=== PATIENT | female | born 2000 | race Caucasian/White ===

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

== ENCOUNTER → 2018-07-01 | Outpatient (CLI) | payer BC ==
[2018-07-02 08:33] LABS: Alpha Fetoprotein (M.O.M) 0.91; Gestational Age (days) 3; Human Chorionic Gonadotropin 16.7 IU/mL; Inhibin A (M.O.M.) 0.77; Maternal Age at EDD (Yrs) 20; Smoker No; Unconjugated Estriol (M.O.M.) 1.28
== END | disposition home or self-care (01) ==
LOC: LABWHC1 12:12
PROVIDERS: ATTEND Obstetrics & Gynecology
DX: Z34.02 Encounter for supervision of normal first pregnancy, second trimester (principal)
CPT/HCPCS: 36415; 82105; 82677; 84702; 86336

== ENCOUNTER 2018-10-13 13:22 | Outpatient (CLI) | payer BC ==
[2018-10-13 13:59] VITALS: BP 102/59; PULSE 85; RESP 14; TEMP 97
--- NOTE | 2018-10-13 15:22 | P.MSEPDOC ---
Presenting Problems - Arrival Data Date of Arrival on Unit: 10/13/18 Time of Arrival on Unit: 13:30 Mode of Transport: Ambulatory - Complaint Comment: cramping/small gush of fluid Medical History - Information : 1 Para: 0 Term: 0 : 0 Abortions: Spontaneous or Elective: 0 Number of Living Children: 0 - Gestational Age Gestational Age by [place] (wks/days): 32 Weeks and 2 Days Review of Systems - Review of Systems Constitutional: No problems Breast: No problems ENT: No problems Cardiovascular: No problems Respiratory: No problems Gastrointestinal: No problems Genitourinary: No problems Musculoskeletal: No problems Neurological: No problems Vital Signs - Temperature Temperature: 97.0 F - Pulse Right Brachial Pulse Rate: 85 Pulse Assessment Method: Automatic Cuff - Respirations Respiratory Rate: 14 Oxygen Delivery Method: Room Air - Blood Pressure Right Arm Blood Pressure: 102/59 Blood Pressure Mean: 73 Blood Pressure Source: Automatic Cuff Medical Screen Scoring (Pre) - Cervical Exam Dilation: 0 cm = 0 Membranes: Intact - Uterine Contractions Frequency: N/A Duration: N/A Intensity: N/A - Maternal Vital Signs Maternal Temperature: N/A Maternal Blood Pressure: N/A Signs of Preeclampsia: N/A Maternal Respirations: N/A - Maternal Trauma Maternal Trauma: N/A - Assessment - Baby A Baseline FHR: 140 Heart Rate - NICHD Category: Category I (Normal) = 0 NST: Reactive Position: N/A Station: N/A - Total Score - Baby A Total Score - Baby A: 0 - Total Score - Baby B Total Score - Baby B: 0 - Total Score - Baby C Total Score - Baby C: 0 - Level of Risk - Baby A Level of Risk - Baby A: Low (0-5) - Level of Risk - Baby B Level of Risk - Baby B: Low (0-5) - Level of Risk - Baby C Level of Risk - Baby C: Low (0-5) Physician Notification (Post) - Physician Notified Physician Notified Date: 10/13/18 Physician Notified Time: 14:08 Physician/Practitioner Notified:: vishal Spoke With: vishal New Order Received: Yes - Notification Comment Comment: increase fluids, discharge home Disposition - Disposition OB Disposition: Discharge to home Discharge Date: 10/13/18 Discharge Time: 14:20 I agree with the RN Medical Screening Exam: Yes Risk & Benefit of care provided described in d/c instruction: Yes Diagnosis: FALSE LABOR BEFORE 37 COMPLETED WEEKS OF GEST, THIRD TRI
== END 2018-10-13 14:19 | disposition home or self-care (01) ==
LOC: FBPOP 13:22
PROVIDERS: ATTEND Obstetrics & Gynecology
DX: O47.03 False labor before 37 completed weeks of gestation, third trimester (principal); Z3A.32 32 weeks gestation of pregnancy
CPT/HCPCS: 59025; 84112; 99213

== ENCOUNTER 2018-11-17 15:05 | Outpatient (CLI) | payer BC ==
[2018-11-17 16:01] VITALS: BP 108/61; PULSE 92; RESP 16; TEMP 96.9
--- NOTE | 2018-11-18 08:19 | P.MSEPDOC ---
Presenting Problems - Arrival Data Date of Arrival on Unit: 11/17/18 Time of Arrival on Unit: 15:05 Mode of Transport: Ambulatory - Complaint OB-Reason for Admission/Chief Complaint: Possible Onset of Labor, Rule Out SROM Medical History - Information : 1 Para: 0 Term: 0 : 0 Abortions: Spontaneous or Elective: 0 Number of Living Children: 0 - Gestational Age Gestational Age by [place] (wks/days): 37 Weeks and 2 Days Review of Systems - Review of Systems Constitutional: No problems Breast: No problems ENT: No problems Cardiovascular: No problems Respiratory: No problems Gastrointestinal: No problems Genitourinary: No problems Musculoskeletal: No problems Neurological: No problems Skin: No problems Vital Signs - Temperature Temperature: 96.9 F Temperature Source: Temporal Artery Scan - Pulse Right Sitting Pulse Rate: 92 Pulse Assessment Method: Automatic Cuff - Respirations Respiratory Rate: 16 Oxygen Delivery Method: Room Air - Blood Pressure Right Arm Blood Pressure: 108/61 Blood Pressure Mean: 76 Blood Pressure Source: Automatic Cuff Medical Screen Scoring (Pre) - Cervical Exam Dilation: 0 cm = 0 Membranes: Intact - Uterine Contractions Frequency: N/A Duration: N/A Intensity: N/A - Maternal Vital Signs Maternal Temperature: N/A Maternal Blood Pressure: N/A Signs of Preeclampsia: N/A Maternal Respirations: N/A - Maternal Trauma Maternal Trauma: N/A - Assessment - Baby A Baseline FHR: 140 Heart Rate - NICHD Category: Category I (Normal) = 0 NST: Reactive Position: N/A Station: N/A - Total Score - Baby A Total Score - Baby A: 0 - Total Score - Baby B Total Score - Baby B: 0 - Total Score - Baby C Total Score - Baby C: 0 - Level of Risk - Baby A Level of Risk - Baby A: Low (0-5) - Level of Risk - Baby B Level of Risk - Baby B: Low (0-5) - Level of Risk - Baby C Level of Risk - Baby C: Low (0-5) Physician Notification (Pre) - Physician Notified Physician Notified Date: 11/17/18 Physician Notified Time: 15:52 Physician/Practitioner Notifed:: Reece New Order Received: Yes (d/c home) Disposition - Disposition OB Disposition: Discharge to home Discharge Date: 11/17/18 Discharge Time: 15:58 I agree with the RN Medical Screening Exam: Yes Risk & Benefit of care provided described in d/c instruction: Yes Diagnosis: FALSE LABOR AT OR AFTER 37 COMPLETED WEEKS OF GESTATION
== END 2018-11-17 15:58 | disposition home or self-care (01) ==
LOC: FBPOP 15:05
PROVIDERS: ATTEND Obstetrics & Gynecology
DX: O47.1 False labor at or after 37 completed weeks of gestation (principal); Z3A.37 37 weeks gestation of pregnancy
CPT/HCPCS: 59025; 84112; 99213

== ENCOUNTER 2018-11-29 05:50 | Inpatient (IN) | payer BC ==
--- NOTE | 2018-11-28 07:33 | P.HPOB ---
History of Present Illness H&P Date: 11/28/18 Chief Complaint: Breech presentation This patient is a pleasant 18-year-old 1 para 0 female estimated date of confinement 12/06/2018 estimated gestational age 39 weeks who presents to labor and delivery for trial of external cephalic version and section if u nsuccessful due to breech presentation. Her has been uncomplicated with the exception of breech presentation. She and I have discussed options for delivery and we are going to attempt a version but if unsuccessful proceed with section today as well. Review of Systems Genitourinary: Reports Menstruation: Reports amenorrhea Past Medical History Past Medical History: No Reported History History of Any Multi-Drug Resistant Organisms: None Reported Past Surgical History: No Surgical Hx Reported Past Anesthesia/Blood Transfusion Reactions: No Reported Reaction Past Psychological History: No Psychological Hx Reported Smoking Status: Never smoker Past Alcohol Use History: None Reported Past Drug Use History: None Reported Medications and Allergies Home Medications Medication Instructions Recorded Confirmed Type Albuterol Inhaler [Ventolin Hfa 1 - 2 puff INHALATION RT-Q6H PRN 11/06/17 11/17/18 Rx Inhaler] #1 inhaler Pnv No.95/Ferrous Fum/Folic AC 1 tab PO DAILY 11/17/18 11/17/18 History [ Multivitamin Tablet] Allergies Allergy/AdvReac Type Severity Reaction Status Date / Time No Known Allergies Allergy Verified 11/17/18 15:18 Exam - OBG Physical Exam Abdomen: bowel sounds normal, no diffuse tenderness, no bruit present, no guarding noted, no hepatomegaly, no splenomegaly, no mass Vulva: both: normal Vagina: normal moisture, no discharge Cervix: no lesion (Cervix preventing the office was closed.), no discharge Uterus: enlarged (Fundal height 37 cm) Results blood work shows she is a positive, rubella immune, RPR nonreactive, hepatitis B negative, HIV is nonreactive, Glucola was normal, quad screen was negative, ultrasounds have been normal with exception of breech presentation. Group B strep was negative Assessment and Plan Assessment: This is a pleasant 18-year-old 1 para 0 female 39-0/7 weeks gestation who presents to labor and delivery for trial of external cephalic version and if unsuccessful section. Patient and I have discussed the version and its risks including risks of bradycardia or placental abruption requiring emergent . Also discussed risk of including risks of i nfection, bleeding, possible injury bowel, bladder, vessels, and other organs. All the patient's questions are answered written consent is obtained. (1) 39 weeks gestation of Status: Acute Code(s): Z3A.39 - 39 WEEKS GESTATION OF SNOMED Code(s): 95111221 (2) Breech presentation Status: Acute Code(s): O32.1XX0 - MATERNAL CARE FOR BREECH PRESENTATION, UNSP SNOMED Code(s): 2677717
[2018-11-28 13:53] VITALS: BMI 24.6
[2018-11-29] MEDS ORDERED: OXYTOCIN 10 UNIT/ML 1 ML VIAL IM PRN (06:03)
[2018-11-29] MEDS ORDERED: TERBUTALINE 1 MG/ML VIAL SQ PRN (06:03)
[2018-11-29] MEDS ORDERED: CARBOPROST TROMETHAMINE 250 MCG/ML 1 ML AMP IM PRN (06:03)
[2018-11-29] MEDS ORDERED: LIDOCAINE 0.5% (PF) 5 MG/ML (50 ML SDV) SQ PRN (06:03)
[2018-11-29] MEDS ORDERED: METHYLERGONOVINE 0.2 MG/ML 1 ML AMP IM PRN (06:03)
[2018-11-29] MEDS ORDERED: CITRIC ACID-SODIUM CITRATE 15 ML CUP PO ONE (06:18)
[2018-11-29] MEDS: LACTATED RINGERS 1,000 ML IV SCH ×4 (06:18→22:28)
[2018-11-29] MEDS ORDERED: LACTATED RINGERS 1,000 ML IV ONE (06:18)
--- NOTE | 2018-11-29 06:21 | P.PN ---
Progress Note - Text Progress Note Date: 11/29/18 Patient IV placed. heart tones are reactive. Ultrasound confirms persistent breech presentation. I previously discussed in the office and today trial of external cephalic version. This is attempted 2 without success. We will now proceed with primary section for delivery.
[2018-11-29 06:45] LABS: HGB 11.6 gm/dL (11.4-16.0); MCH 31.5 pg (25.0-35.0); MCHC 34.2 g/dL (31.0-37.0); MCV 92.2 fL (80.0-100.0); Mean Platelet Volume 7.9; Platelet Count 171 k/uL (150-450); RBC 3.69 m/uL (3.80-5.40); RDW 14.7 % (11.5-15.5)
[2018-11-29 07:49] LABS: Band Neutrophils % 1 %; Eosinophils # (M) 0.55 k/uL (0-0.7); Lymphocytes # (M) 1.76 k/uL (1.0-4.8); Monocytes # (M) 1.43 k/uL (0-1.0); Neutrophils % (M) 65 %; Nucleated Red Blood Cells 0 /100 WBC (0-0); Total Cells Counted 100
[2018-11-29 07:50] LABS: Poikilocytosis (M) Present
[2018-11-29] MEDS ORDERED: OXYTOCIN 10 UNIT/ML 1 ML VIAL ONE (07:53)
[2018-11-29] MEDS ORDERED: KETOROLAC 30 MG/ML 1 ML VIAL ONE (07:53)
[2018-11-29] MEDS ORDERED: ePHEDrine SULFATE/0.9% NACL/PF 50 MG/5 ML SYRINGE IV ONE (07:53)
[2018-11-29] MEDS ORDERED: METHYLERGONOVINE 0.2 MG/ML 1 ML AMP ONE (07:53)
[2018-11-29] MEDS ORDERED: MORPHINE SULFATE (PF) 0.3 MG/0.3 ML SYR ONE (07:53)
[2018-11-29] MEDS ORDERED: ONDANSETRON 4 MG/2 ML VIAL ONE (07:53)
[2018-11-29] MEDS ORDERED: NALBUPHINE 10 MG/ML (1 ML AMP) ONE (07:53)
[2018-11-29] MEDS ORDERED: METOCLOPRAMIDE 5 MG/ML 2 ML VIAL IVP PRN (08:36)
[2018-11-29] MEDS ORDERED: ACETAMINOPHEN TAB 325 MG TAB PO PRN (08:36)
[2018-11-29] MEDS ORDERED: HYDROcodone/APAP 5-325MG 1 EACH TAB PO PRN (08:36)
[2018-11-29] MEDS ORDERED: LANOLIN CREAM 5 GM TUBE TOPICAL PRN (08:36)
[2018-11-29] MEDS ORDERED: OXYTOCIN 20 UNITS/1000 ML NS 1,000 ML IV SCH (08:36)
[2018-11-29] MEDS ORDERED: diphenhydrAMINE 25 MG CAP PO PRN (08:36)
[2018-11-29] MEDS ORDERED: SIMETHICONE 80 MG CHEWABLE PO PRN (08:36)
[2018-11-29] MEDS ORDERED: diphenhydrAMINE 50 MG/ML 1 ML VIAL IVP PRN (08:36)
[2018-11-29] MEDS ORDERED: NALOXONE 0.4 MG/ML 1 ML VIAL IV PRN ×2 (08:36→10:54)
[2018-11-29] MEDS ORDERED: ONDANSETRON 4 MG/2 ML VIAL IVP PRN ×2 (08:36→10:54)
[2018-11-29] MEDS ORDERED: KETOROLAC 30 MG/ML 1 ML VIAL IVP PRN ×2 (08:36→10:54)
[2018-11-29] MEDS ORDERED: ZOLPIDEM 5 MG TAB PO PRN (08:36)
--- NOTE | 2018-11-29 08:38 | P.OP ---
Date of Procedure: 11/29/18 Preoperative Diagnosis: #1: 39-0/7 week . #2: Persistent breech presentation status post unsuccessful version Postoperative Diagnosis: Same, double footling breech Procedure(s) Performed: Primary low transverse section Anesthesia: spinal Surgeon: Gilmer Galvez [facility] Fellow #1: Amanda Newell Estimated Blood Loss (ml): 800 Pathology: none sent Condition: stable Disposition: floor Indications for Procedure: Please see dictated H&P for intimate details of this patient's admission. Brief summary this is a pleasant 18-year-old 1 para 0 female 39 weeks gestation admitted to labor and delivery for attempted external cephalic version and section if unsuccessful. I attempted version 2 without success and therefore now presents for section for delivery due to persistent breech. Patient does understand this procedure and risks and risks of infection, bleeding, possible need bowel, bladder, vessels, and/or other organs. All the patient's questions are answered and a written consent is obtained. Operative Findings: This was a vigorous viable female infant Apgars 9 and 10 delivery time is 0805 hrs. a double footling breech Description of Procedure: This patient has a Pierce catheter placed to straight drain. She is subsequently taken to the operating room which time we realized the Pierce catheters bulb did not inflate and the catheter had fallen out. Spinal anesthetic is administered without incident and then at this time a new catheter is placed. With this done the patient has an abdominal prep and drape. Scalpels taken Pfannenstiel skin incision is made. A second scalpel is taken down the fascia and the fascia scored with a knife. Fascial incision extended bilaterally using the Bar scissors. Fascia is dissected off the rectus muscles sharply. Rectus muscles are the peritoneum identified and entered sharply. Peritoneal incision extended superiorly and inferiorly without difficulty. Bladder blade is then placed. Bladder peritoneum was developed. Using a scalpel I make a low transverse uterine incision. Using a hemostat I enter the uterine cavity bluntly and there is loss of clear fluid. The is found to be in the double footling breech. Using the usual breech maneuvers we have delivery of a viable female infant Apgars are 9 and 10 delivery time is 0805 hrs. After delivery of the infant the umbilical cords doubly clamped and cut. This is a vigorous viable female infant. Infant is then handed off to the nurses in attendance. The placenta is then manually extracted intact. The uterus is then externalized and uterine incision Marcaine is Fam clamps. Uterine cavity is explored and found to be clear of all debris. Uterus is bit boggy at this time after giving some Pitocin regular one dose of Methergine and this firms up the uterus quite well. With this done the uterine incision is closed using 0 Vicryl running locked fashion 2 layers. Excellent hemostasis is noted. The bladder peritoneum was reapproximated using a 3-0 Vicryl running fashion. Excess fluid is removed from the abdomen and pelvis. The uterus placed back into the abdomen. The parietal peritoneum was then closed using 0 Vicryl running fashion. The rectus muscles reapproximated Vicryl interrupted fashion. Fascial incision is then closed using 0 PDS. Fascial incision is intact and hemostatic. Subcutaneous tissues and closed using a 3-0 Vicryl. Skin is and closed using malcolm. All counts are correct 3. There are no complications. Infant and mother are taken to the birthing suite in satisfactory condition.
[2018-11-29] MEDS: SENNOSIDES-DOCUSATE SODIUM 1 EACH TAB PO SCH ×2 (08:52→22:28)
[2018-11-29] MEDS ORDERED: NALBUPHINE 10 MG/ML (1 ML AMP) IV PRN (10:54)
[2018-11-29] MEDS ORDERED: HYDROmorphone 1 MG/ML 1 ML SYRINGE IVP PRN (10:54)
[2018-11-30] MEDS: LACTATED RINGERS 1,000 ML IV SCH ×2 (02:55→19:45)
[2018-11-30 07:05] LABS: Basophils % (A) 0 %; Eosinophils # (A) 0.1 k/uL (0-0.7); Eosinophils % (A) 1 %; HCT 28.8 % (34.0-46.0); Lymphocytes # (A) 0.9 k/uL (1.0-4.8); Lymphocytes % (A) 8 %; MCH 31.8 pg (25.0-35.0); MCHC 33.6 g/dL (31.0-37.0); MCV 94.4 fL (80.0-100.0); Monocytes # (A) 0.9 k/uL (0-1.0); Monocytes % (A) 8 %; Neutrophils # (A) 8.7 k/uL (1.3-7.7); Neutrophils % (A) 79 %; Platelet Count 128 k/uL (150-450); RBC 3.05 m/uL (3.80-5.40); RDW 13.2 % (11.5-15.5)
[2018-11-30 07:12] LABS: HGB 9.7 gm/dL (11.4-16.0)
[2018-11-30] MEDS: SENNOSIDES-DOCUSATE SODIUM 1 EACH TAB PO SCH ×2 (08:44→19:33)
[2018-11-30] MEDS: IBUPROFEN 600 MG TAB PO PRN ×3 (08:44→23:13)
--- NOTE | 2018-11-30 09:22 | P.PNOBGPC ---
Subjective - Subjective Principal diagnosis: Status post primary low transverse postop day #1 Interval history: Patient seen and examined at bedside well she was eating breakfast. Denies nausea, vomiting, chest pain, shortness of breath or calf pain. Patient reports: Reports appetite normal, Reports voiding normally, Reports pain well controlled, Reports ambulating normally Bryan: doing well Objective - Vital Signs Latest vital signs: Vital Signs Temp Pulse Resp BP Pulse Ox 11/30/18 08:00 98.4 F 86 16 98/62 98 11/30/18 06:00 16 11/30/18 04:00 98.5 F 78 14 116/52 99 11/30/18 02:00 14 11/30/18 00:00 98.5 F 73 14 97/51 11/29/18 22:00 16 11/29/18 20:00 98.2 F 70 14 115/72 98 11/29/18 17:00 17 11/29/18 15:30 98.3 F 76 16 108/72 100 11/29/18 13:55 16 11/29/18 12:00 98.5 F 72 16 132/80 11/29/18 11:55 16 100 11/29/18 10:30 98.6 F 69 17 126/73 11/29/18 10:00 68 17 138/82 11/29/18 09:30 68 16 144/83 100 Intake and Output 11/29/18 11/30/18 11/30/18 22:59 06:59 14:59 Intake Total 650 Output Total 450 600 Balance 200 -600 Intake: Oral 650 Output: Urine 450 600 Uretheral (Pierce) 450 Other: # Voids 2 - Exam Lungs: bilateral: normal Chest: Normal S1, Normal S2 Extremities: Present: normal Abdomen: Present: normal appearance, soft. Absent: distention, tenderness Incision: Present: normal, dry, intact Uterus: Present: normal, firm - Labs Labs: Abnormal Lab Results - Last 24 Hours (Table) 11/30/18 Range/Units 06:40 RBC 3.05 L (3.80-5.40) m/uL Hgb 9.7 L D (11.4-16.0) gm/dL Hct 28.8 L (34.0-46.0) % Plt Count 128 L (150-450) k/uL Neutrophils # 8.7 H (1.3-7.7) k/uL Lymphocytes # 0.9 L (1.0-4.8) k/uL Assessment and Plan (1) Status post primary low transverse section Current Visit: Yes Status: Acute Code(s): Z98.891 - HISTORY OF UTERINE SCAR FROM PREVIOUS SURGERY SNOMED Code(s): 144674288 Plan: 1. Increase ambulation 2. By mouth pain meds
--- NOTE | 2018-11-30 11:08 | P.PN ---
Progress Note - Text Progress Note Date: 11/30/18 Postop day 1 from subarachnoid block with Duramorph. Patient is doing well. She is able to stand. She's been able to urinate. Lower extremity weakness or paresthesias noted. Pain is well-controlled. Denies any altered mental status and respiratory depression. Patient will be likely discharged home today or tomorrow
[2018-12-01] MEDS: IBUPROFEN 600 MG TAB PO PRN (08:03)
[2018-12-01] MEDS: SENNOSIDES-DOCUSATE SODIUM 1 EACH TAB PO SCH (08:03)
[2018-12-01 08:13] VITALS: BP 97/60; PULSE 86; RESP 15; TEMP 98
--- NOTE | 2018-12-01 09:14 | P.DS ---
Providers Date of admission: 11/29/18 05:50 Expected date of discharge: 12/01/18 Attending physician: Gilmer Galvez Primary care physician: Stated None - Discharge Diagnosis(es) (1) Status post primary low transverse section Current Visit: Yes Status: Acute Hospital Course: Patient presented for primary low transverse due to breech pre sentation. She underwent this procedure without complication. Postoperatively her pain has been well-controlled. She is ambulating voiding without difficulty. She is tolerating regular diet and passing flatus. She denies nausea, vomiting, chest pain, shortness of breath or calf pain. Her incision is clean, dry, intact. She'll be discharged home day #2 in stable condition to follow-up with Dr. Galvez in one week. Plan - Discharge Summary Discharge Rx Participant: No New Discharge Prescriptions: New Ibuprofen [Motrin] 600 mg PO Q6HR PRN #30 tab PRN Reason: Mild Pain Or Fever >= 100.5 HYDROcodone/APAP 5-325MG [[place] 5-325] 1 each PO Q4HR PRN #18 tab PRN Reason: Moderate Pain No Action Albuterol Inhaler [Ventolin Hfa Inhaler] 1 - 2 puff INHALATION RT-Q6H PRN #1 inhaler PRN Reason: Shortness Of Breath Pnv No.95/Ferrous Fum/Folic AC [ Multivitamin Tablet] 1 tab PO DAILY Discharge Medication List Albuterol Inhaler [Ventolin Hfa Inhaler] 1 - 2 puff INHALATION RT-Q6H PRN #1 inhaler 11/06/17 [Rx] Pnv No.95/Ferrous Fum/Folic AC [ Multivitamin Tablet] 1 tab PO DAILY 11/17/18 [History] HYDROcodone/APAP 5-325MG [[place] 5-325] 1 each PO Q4HR PRN #18 tab 11/29/18 [Rx] Ibuprofen [Motrin] 600 mg PO Q6HR PRN #30 tab 11/29/18 [Rx] Follow up Appointment(s)/Referral(s): Gilmer Galvez MD [STAFF PHYSICIAN] - 1 Week (Please see me in about 6 weeks for a visit as well. ) Patient Instructions/Handouts: (DC) Activity/Diet/Wound Care/Special Instructions: No strenuous activity or heavy lifting for 6 weeks. No intercourse or anything per vagina for 6 weeks. Please call if any fever, chills, excessive vaginal bleeding and/or abdominal pain. Discharge Disposition: HOME SELF-CARE
== END 2018-12-01 11:10 | disposition home or self-care (01) | DRG 788 ==
LOC: 4FBP 05:50
PROVIDERS: ADMIT Obstetrics & Gynecology; ATTEND Obstetrics & Gynecology
PROC: 10D00Z1 Extraction of Products of Conception, Low, Open Approach (ICD-10-PCS; principal; 2018-11-29 08:00)
DX: O32.8XX0 Maternal care for other malpresentation of fetus, not applicable or unspecified (principal); Z3A.39 39 weeks gestation of pregnancy; Z37.0 Single live birth
CPT/HCPCS: 85025; 86850; 86900; 86901

== ENCOUNTER 2020-06-01 05:12 | Inpatient (IN) | payer BC ==
--- NOTE | 2020-05-31 07:47 | P.HPOB ---
History of Present Illness H&P Date: 05/31/20 Chief Complaint: Repeat section This patient is a pleasant 20-year-old 2 para 1 female estimated date of confinement 06/05/2020 estimated gestational age 39-3/7 weeks who presents to labor and delivery for scheduled repeat section. Patient's first baby was breech and she had a section at that time as requested repeat for this delivery. Patient's care has been uncomplicated. Review of Systems Genitourinary: Reports Menstruation: Reports amenorrhea Past Medical History Past Medical History: Asthma History of Any Multi-Drug Resistant Organisms: None Reported Past Surgical History: Section Past Anesthesia/Blood Transfusion Reactions: No Reported Reaction Additional Past Anesthesia/Blood Transfusion Reaction / Comment(s): no hx of general anesthesia or blood transfusion Past Psychological History: ADD/ADHD, Anxiety Smoking Status: Never smoker Past Alcohol Use History: None Reported Past Drug Use History: None Reported - Past Family History Mother Family Medical History: No Reported History Medications and Allergies Home Medications Medication Instructions Recorded Confirmed Type Albuterol Inhaler (Mhu) [Ventolin 1 - 2 puff INHALATION RT-Q6H PRN 11/06/17 11/28/18 Rx Hfa Inhaler (Mhu)] #1 inhaler Pnv No.95/Ferrous Fum/Folic AC 1 tab PO DAILY 11/17/18 11/29/18 History [ Multivitamin Tablet] HYDROcodone/APAP 5-325MG [[place] 1 each PO Q4HR PRN #18 tab 11/29/18 Rx 5-325] Ibuprofen [Motrin] 600 mg PO Q6HR PRN #30 tab 11/29/18 Rx Allergies Allergy/AdvReac Type Severity Reaction Status Date / Time No Known Allergies Allergy Verified 11/29/18 06:05 Exam - OBG Physical Exam Abdomen: bowel sounds normal, no diffuse tenderness, no bruit present, no guardi ng noted, no hepatomegaly, no splenomegaly, no mass Vulva: both: normal Vagina: normal moisture, no discharge Cervix: no lesion, no discharge Uterus: enlarged Results blood work shows she is A positive, rubella immune, RPR nonreactive, HIV is nonreactive, hepatitis B was negative, quad screen was negative, group B strep was negative, Glucola was abnormal with a normal three-hour gtt. Growth ultrasounds and anatomy ultrasounds normal. Assessment and Plan Assessment: This is a pleasant 20-year-old 2 para 1 female 39-3/7 weeks gestation who presents to labor and delivery for elective repeat section. Plan is repeat low transverse section. Patient I've discussed the surgery and risks including risks of infection, bleeding, possible injury bowel, bladder, vessels, and/or other organs. All the patient's questions have been answered written consent obtained. (1) 39 weeks gestation of Status: Acute Code(s): Z3A.39 - 39 WEEKS GESTATION OF SNOMED Code(s): 26889423 (2) Previous delivery affecting Status: Acute Code(s): O34.219 - MATERNAL CARE FOR UNSP TYPE SCAR FROM PREVIOUS DEL SNOMED Code(s): 308494151
[2020-05-31 14:03] VITALS: BMI 22.1
[2020-06-01] MEDS ORDERED: LACTATED RINGERS 1,000 ML IV SCH (05:20)
[2020-06-01] MEDS ORDERED: LACTATED RINGERS 1,000 ML IV ONE (05:20)
[2020-06-01] MEDS ORDERED: CITRIC ACID-SODIUM CITRATE 15 ML CUP PO ONE (05:20)
[2020-06-01 06:22] LABS: HCT 34.2 % (34.0-46.0); HGB 11.9 gm/dL (11.4-16.0); MCH 31.8 pg (25.0-35.0); MCHC 34.9 g/dL (31.0-37.0); MCV 91.1 fL (80.0-100.0); Mean Platelet Volume 7.5; Platelet Count 200 k/uL (150-450); RBC 3.75 m/uL (3.80-5.40); RDW 13.2 % (11.5-15.5); WBC 9.6 k/uL (3.8-10.6)
[2020-06-01 07:45] LABS: Band Neutrophils % 1 %; Lymphocytes # (M) 3.17 k/uL (1.0-4.8); Myelocytes % 1 %; Nucleated Red Blood Cells 0 /100 WBC (0-0)
[2020-06-01 07:47] LABS: Metamyelocytes % 1 %; Monocytes # (M) 0.38 k/uL (0-1.0); Neutrophils % (M) 60 %; Total Cells Counted 200
--- NOTE | 2020-06-01 08:47 | P.OP ---
Date of Procedure: 06/01/20 Preoperative Diagnosis: #1: 39-3/7 week intrauterine . #2: Previous section desires repeat. Postoperative Diagnosis: Same Procedure(s) Performed: Repeat low transverse section. Anesthesia: spinal Surgeon: Gilmer Galvez Circuit Court Judge #1: Zay Butcher Estimated Blood Loss (ml): 600 Urine output (ml): 250 Pathology: none sent Condition: stable Disposition: observation Indications for Procedure: Please see dictated H&P for intimate details of this patient's admission. In brief summary this is a pleasant 20-year-old 2 para 1 female 39-3/7 weeks gestation admitted to labor and delivery for elective repeat section. Patient understands the surgery and risks including risks of infection, bleeding, possible injury to bowel, bladder, vessels, and/or other organs. All the patient's questions are answered and a written consent is obtained. Operative Findings: This is a vigorous viable male infant Apgars 9 and 9 delivery time was 0807 hrs. Infant grossly appears normal. Description of Procedure: This patient has a Pierce catheter placed to straight drain. She is subsequently taken to the operating room where she sat up and spinal anesthetic is administered without incident. An appropriate timeout was done. With an adequate level of anesthesia she has abdominal prep and drape. Scalpel is then taken and the previous Pfannenstiel incision is excised. Second scalpel is taken down to the fascia. Fascia is incised. Fascial incision extended bilaterally using the Bar scissors. Fascia is then dissected off the rectus muscles sharply. Rectus muscles are and peritoneum identified and entered sharply. Peritoneal incision extended superior and inferior without difficulty. Bladder blade is then placed. Bladder peritoneum was taken off the lower uterine segment sharply. Scalpels then taken low transverse uterine incision is made. Using a hemostat I enter the uterine cavity bluntly and there is loss of clear fluid. The incision is then extended bluntly. Infant's head is then gently guided through the incision with fundal pressure delivered. Mouth and nares are bulb suctioned. There is no evidence of a nuchal cord. With continued fundal pressure and gentle guidance we deliver the rest of this 's body. This is a vigorous, viable, male . Apgars are 9 and 9 delivery time is 0807 hrs. After delivery of the the umbilical cord is doubly clamped and cut appears to be trivascular. The infant is then handed off to the nurses in attendance. The placenta is then manually extracted intact. Uterus is then externalized and uterine cavity is explored and found to be clear of all debris. Uterine incision demarcated with Fam clamps and closed using 0 Vicryl running locked fashion in 2 layers. Excellent hemostasis is noted. Inspection of the uterus tubes and ovaries appears to be normal for term gestation. Excess fluid is removed from the abdomen and pelvis. Uterus is placed back into the abdomen. The parietal peritoneum was then identified and closed in 0 Vicryl running fashion. Rectus muscles are reapproximated in 0 Vicryl interrupted fashion. The fascial incision is then closed using 0 PDS in a running fashion. Fascial incision is intact and hemostatic. Subcutaneous tissues and closed using a 3-0 Vicryl. Skin is and closed using malcolm. Excellent reapproximation is noted. All counts are correct 3. There are no complications. Infant and mother are stable delivery room.
[2020-06-01] MEDS ORDERED: KETOROLAC 15 MG/ML 1 ML VIAL IVP PRN (08:48)
[2020-06-01] MEDS ORDERED: diphenhydrAMINE 50 MG/ML 1 ML VIAL IVP PRN (08:48)
[2020-06-01] MEDS ORDERED: METOCLOPRAMIDE 5 MG/ML 2 ML VIAL IVP PRN (08:48)
[2020-06-01] MEDS ORDERED: NALOXONE 0.4 MG/ML 1 ML VIAL IV PRN (08:48)
[2020-06-01] MEDS ORDERED: diphenhydrAMINE 25 MG CAP PO PRN (08:48)
[2020-06-01] MEDS ORDERED: OXYTOCIN 30 UNITS/500 ML NS 30 UNIT in SALINE 1 500ML.BAG IV SCH (08:48)
[2020-06-01] MEDS ORDERED: LANOLIN CREAM 5 GM TUBE TOPICAL PRN (08:48)
[2020-06-01] MEDS ORDERED: ONDANSETRON 4 MG/2 ML VIAL IVP PRN (08:48)
[2020-06-01] MEDS ORDERED: ZOLPIDEM 5 MG TAB PO PRN (08:48)
[2020-06-01] MEDS ORDERED: METHYLERGONOVINE 0.2 MG/ML 1 ML AMP IM ONE (09:30)
[2020-06-01] MEDS: LACTATED RINGERS 1,000 ML IV SCH ×2 (09:37→17:57)
[2020-06-01] MEDS: SENNOSIDES-DOCUSATE SODIUM 1 EACH TAB PO SCH ×2 (10:35→20:05)
[2020-06-01] MEDS: IBUPROFEN 600 MG TAB PO PRN (20:04)
[2020-06-02] MEDS: IBUPROFEN 600 MG TAB PO PRN ×3 (04:16→19:35)
--- NOTE | 2020-06-02 06:38 | P.PNOBGPC ---
Subjective - Subjective Patient reports: Reports appetite normal, Reports voiding normally, Reports pain well controlled, Reports ambulating normally : doing well Objective - Vital Signs Latest vital signs: Vital Signs Temp Pulse Resp BP Pulse Ox 06/02/20 04:00 98.5 F 76 16 88/41 06/01/20 23:49 98.1 F 76 20 98/51 06/01/20 20:00 98.2 F 69 18 92/51 100 06/01/20 16:00 98 F 72 15 90/60 98 06/01/20 12:00 98 F 80 15 106/68 97 06/01/20 10:35 97.2 F L 80 16 114/63 100 06/01/20 10:05 75 16 114/77 100 06/01/20 09:35 79 16 120/76 100 06/01/20 09:20 73 16 118/77 100 06/01/20 09:05 88 16 113/60 98 06/01/20 08:50 77 16 109/61 98 06/01/20 08:35 97.4 F L 82 16 106/62 99 Intake and Output 06/01/20 06/01/20 06/02/20 14:59 22:59 06:59 Intake Total 2100 1100 Output Total 1200 1500 1000 Balance 900 -1500 100 Intake: IV 2100 Oral 1100 Output: Urine 600 1500 1000 Uretheral (Pierce) 1500 Estimated Blood Loss 600 Other: # Voids 2 - Exam Lungs: bilateral: normal Chest: Normal S1, Normal S2 Extremities: Present: normal Abdomen: Present: normal appearance, soft. Absent: distention, tenderness Incision: Present: normal, dry, intact Uterus: Present: normal, firm - Labs Labs: Abnormal Lab Results - Last 24 Hours (Table) 06/01/20 Range/Units 05:26 Metamyelocytes # (Man) 0.10 H (0) k/uL Myelocytes # (Manual) 0.10 H (0) k/uL Assessment and Plan Assessment: Postoperative day #2. Patient is resting without new complaints. Vital signs are stable and she is afebrile. Uterus is firm nontender and her incision is intact and dry. Patient is tolerating regular diet, urinating, ambulating without difficulty. My impression this is a normal postoperative course. Plan is to continue routine postoperative care, check a CBC, allow the patient to shower. (1) 39 weeks gestation of Current Visit: No Status: Acute Code(s): Z3A.39 - 39 WEEKS GESTATION OF SNOMED Code(s): 00983160 (2) Previous delivery affecting Current Visit: No Status: Acute Code(s): O34.219 - MATERNAL CARE FOR UNSP TYPE SCAR FROM PREVIOUS DEL SNOMED Code(s): 564919735
--- NOTE | 2020-06-02 07:51 | P.PN ---
Progress Note - Text Date: 06/02/2020 Time: 07:07 The patient is status post section Vital signs stable VAS: 0-10 Patient has no complaints of pain. The patient incurred some minimal itching yesterday, this itching is now subsiding. Pain meds to be managed by service.
[2020-06-02 07:56] LABS: Basophils % (A) 0 %; Eosinophils # (A) 0.1 k/uL (0-0.7); Eosinophils % (A) 1 %; HCT 30.3 % (34.0-46.0); HGB 10.4 gm/dL (11.4-16.0); Lymphocytes # (A) 1.6 k/uL (1.0-4.8); Lymphocytes % (A) 17 %; MCH 31.9 pg (25.0-35.0); MCHC 34.5 g/dL (31.0-37.0); MCV 92.3 fL (80.0-100.0); Mean Platelet Volume 7.9; Monocytes # (A) 0.8 k/uL (0-1.0); Monocytes % (A) 9 %; Neutrophils # (A) 6.5 k/uL (1.3-7.7); Neutrophils % (A) 69 %; Platelet Count 146 k/uL (150-450); RBC 3.28 m/uL (3.80-5.40); RDW 13.1 % (11.5-15.5); WBC 9.3 k/uL (3.8-10.6)
[2020-06-02] MEDS: SENNOSIDES-DOCUSATE SODIUM 1 EACH TAB PO SCH ×2 (08:08→19:35)
[2020-06-02] MEDS: LACTATED RINGERS 1,000 ML IV SCH (09:27)
[2020-06-02] MEDS: SIMETHICONE 80 MG CHEWABLE PO PRN ×2 (10:09→15:50)
[2020-06-02] MEDS: ACETAMINOPHEN TAB 500 MG TAB PO SCH ×2 (15:49→23:03)
[2020-06-03] MEDS: IBUPROFEN 600 MG TAB PO PRN (04:08)
--- NOTE | 2020-06-03 05:45 | P.PNOBGPC ---
Subjective - Subjective Patient reports: Reports appetite normal, Reports voiding normally, Reports pain well controlled, Reports ambulating normally : doing well Objective - Vital Signs Latest vital signs: Vital Signs Temp Pulse Resp BP Pulse Ox 06/02/20 15:37 98.5 F 82 18 94/46 97 06/02/20 11:53 98.5 F 75 18 87/43 97 06/02/20 08:00 98.1 F 70 18 94/51 99 Intake and Output 06/02/20 06/02/20 06/03/20 14:59 22:59 06:59 Other: Voiding Method Toilet # Voids 1 1 2 - Exam Lungs: bilateral: normal Chest: Normal S1, Normal S2 Extremities: Present: normal Abdomen: Present: normal appearance, soft. Absent: distention, tenderness Incision: Present: normal, dry, intact Uterus: Present: normal, firm - Labs Labs: Abnormal Lab Results - Last 24 Hours (Table) 06/02/20 Range/Units 07:36 RBC 3.28 L (3.80-5.40) m/uL Hgb 10.4 L (11.4-16.0) gm/dL Hct 30.3 L (34.0-46.0) % Plt Count 146 L (150-450) k/uL Assessment and Plan Assessment: Postoperative day #2. Patient is resting without complaints and wishes to go home. Vital signs are stable she is afebrile. Uterus is firm nontender and she is having normal lochia. Incision is intact and dry. CBC yesterday was normal. Patient is tolerating regular diet, urinating, ambulating without difficulty. My impression is a normal postoperative course. Plan is to continue routine postoperative care and discharge home later today. (1) 39 weeks gestation of Current Visit: No Status: Acute Code(s): Z3A.39 - 39 WEEKS GESTATION OF SNOMED Code(s): 20756127 (2) Previous delivery affecting Current Visit: No Status: Acute Code(s): O34.219 - MATERNAL CARE FOR UNSP TY PE SCAR FROM PREVIOUS DEL SNOMED Code(s): 616655515
--- NOTE | 2020-06-03 05:53 | P.DS ---
Providers Date of admission: 06/01/20 05:12 Expected date of discharge: 06/03/20 Attending physician: Gilmer Galvez Primary care physician: Catrachito Blair - Discharge Diagnosis(es) (1) 39 weeks gestation of Current Visit: No Status: Acute (2) Previous delivery affecting Current Visit: No Status: Acute Hospital Course: Please see dictated H&P for intimate details of this patient's admission. Brief summary this is a pleasant 20-year-old 2 para 1 female 39-3/7 weeks gestation who is admitted to labor and delivery for elective repeat section. Patient is admitted undergoes above-named surgery for viable male infant. Please see dictated operative note. Postoperative patient does well and on postoperative 2 cell be stable for discharge home follow up with me in 1 week. Procedures: Repeat low transverse section Patient Condition at Discharge: Good Plan - Discharge Summary Discharge Rx Participant: Yes New Discharge Prescriptions: New Ibuprofen [Motrin] 600 mg PO Q6H PRN #30 tab PRN Reason: Pain oxyCODONE HCL [OxyIR] 5 mg PO Q4HR PRN #18 tab PRN Reason: Pain No Action Albuterol Inhaler (Mhu) [Ventolin Hfa Inhaler (Mhu)] 1 - 2 puff INHALATION RT-Q6H PRN #1 inhaler PRN Reason: Shortness Of Breath Pnv No.95/Ferrous Fum/Folic AC [ Multivitamin Tablet] 1 tab PO DAILY Discharge Medication List Albuterol Inhaler (Mhu) [Ventolin Hfa Inhaler (Mhu)] 1 - 2 puff INHALATION RT- Q6H PRN #1 inhaler 11/06/17 [Rx] Pnv No.95/Ferrous Fum/Folic AC [ Multivitamin Tablet] 1 tab PO DAILY 11/17/18 [History] Ibuprofen [Motrin] 600 mg PO Q6H PRN #30 tab 06/03/20 [Rx] oxyCODONE HCL [OxyIR] 5 mg PO Q4HR PRN #18 tab 06/03/20 [Rx] Follow up Appointment(s)/Referral(s): Gilmer Galvez MD [STAFF PHYSICIAN] - 06/09/20 1:30 pm (Patient also has a appointment on July 16 at 10:30 AM.) Patient Instructions/Handouts: (DC) Activity/Diet/Wound Care/Special Instructions: No intercourse or anything per vagina for 6 weeks. No heavy lifting or strenuous activity for 6 weeks. Please call if any fever, chills, excessive vaginal bleeding, and/or abdominal pain. Discharge Disposition: HOME SELF-CARE
[2020-06-03 07:17] LABS: Basophils % (A) 0 %; Eosinophils # (A) 0.2 k/uL (0-0.7); Eosinophils % (A) 2 %; HCT 29.6 % (34.0-46.0); HGB 10.1 gm/dL (11.4-16.0); Lymphocytes # (A) 1.8 k/uL (1.0-4.8); Lymphocytes % (A) 19 %; MCH 31.3 pg (25.0-35.0); MCHC 34.1 g/dL (31.0-37.0); MCV 91.8 fL (80.0-100.0); Mean Platelet Volume 7.3; Monocytes # (A) 0.8 k/uL (0-1.0); Monocytes % (A) 9 %; Neutrophils % (A) 66 %; Platelet Count 161 k/uL (150-450); RBC 3.23 m/uL (3.80-5.40); RDW 13.2 % (11.5-15.5); WBC 9.1 k/uL (3.8-10.6)
[2020-06-03 07:40] VITALS: BP 97/57; PULSE 74; RESP 16; TEMP 97.9
[2020-06-03] MEDS: SENNOSIDES-DOCUSATE SODIUM 1 EACH TAB PO SCH (07:42)
== END 2020-06-03 11:10 | disposition home or self-care (01) | DRG 788 ==
LOC: 4FBP 05:12
PROVIDERS: ADMIT Obstetrics & Gynecology; ATTEND Obstetrics & Gynecology
PROC: 10D00Z1 Extraction of Products of Conception, Low, Open Approach (ICD-10-PCS; principal; 2020-06-01 08:04)
DX: O34.211 Maternal care for low transverse scar from previous cesarean delivery (principal); Z37.0 Single live birth; Z3A.39 39 weeks gestation of pregnancy; O99.52 Diseases of the respiratory system complicating childbirth; J45.909 Unspecified asthma, uncomplicated
CPT/HCPCS: 85025; 86850; 86900; 86901

== ENCOUNTER 2021-12-08 22:31 | Outpatient (CLI) | payer BC ==
[2021-12-09 01:26] VITALS: BP 108/67; PULSE 94; RESP 16; TEMP 97.8
--- NOTE | 2021-12-15 11:26 | P.MSEPDOC ---
Presenting Problems - Arrival Data Date of Arrival on Unit: 12/08/21 Time of Arrival on Unit: 22:31 Mode of Transport: Ambulatory - Complaint OB-Reason for Admission/Chief Complaint: Possible Onset of Labor Comment: pt states that contractions started around 1930 around 5 to 10 mins a part. rating them 8/10 pain. Medical History - Information : 3 Para: 2 Term: 2 : 0 Abortions: Spontaneous or Elective: 0 Number of Living Children: 2 - Gestational Age Gestational Age by [place] (wks/days): 39 Weeks and 6 Days Review of Systems - Review of Systems Constitutional: No problems Breast: No problems ENT: No problems Cardiovascular: No problems Respiratory: No problems Gastrointestinal: No problems Genitourinary: No problems Musculoskeletal: No problems Neurological: No problems Skin: No problems Vital Signs - Temperature Temperature: 97.8 F Temperature Source: Temporal Artery Scan - Pulse Pulse Oximetery Pulse Rate: 94 Pulse Assessment Method: Pulse Oximetry - Respirations Respiratory Rate: 16 Oxygen Delivery Method: Room Air O2 Sat by Pulse Oximetry: 99 - Blood Pressure Right Arm Blood Pressure: 108/67 Blood Pressure Mean: 80 Blood Pressure Source: Automatic Cuff Medical Screen Scoring - Cervical Exam Dilation (cm): 1.5 Effacement (%): 50 Station: -3 Membranes: Intact - Uterine Contractions Frequency From (mins): 5 Frequency To (mins): 10 Duration From (seconds): 60 Duration To (seconds): 120 Intensity: Moderate Resting: Soft to palpation - Assessment - Baby A Baseline FHR: 125 Heart Rate - NICHD Category: Category I (Normal) NST: Reactive Physician Notification - Physician Notified Physician Notified Date: 12/09/21 Physician Notified Time: 00:45 Physician: Meli Wright Order Received: Yes - Notification Comment Comment: d/c pt home Maternal Triage Index - Maternal Triage Index Presenting for scheduled procedure w/no complaint: No - Stat/Priority 1 Stat Priority 1: No - Urgent/Priority 2 Urgent Priority 2: No - Prompt/Priority 3 Prompt Priority 3: No - Non-Urgent/Priority 4 Non-Urgent Priority 4: Yes Criteria Met for Priority 4: pt complaints of contractions. dr wright notified of assessment and SVE and recheck. d/c patient home Disposition - Disposition OB Disposition: Discharge to home Discharge Date: 12/09/21 Discharge Time: 00:50 I agree with the RN Medical Screening Exam: Yes Case reviewed; plan agreed upon as documented in EMR&OBIX.: Yes Diagnosis: PRIMARY INADEQUATE CONTRACTIONS
== END 2021-12-09 00:50 | disposition home or self-care (01) ==
LOC: FBPOP 22:31
PROVIDERS: ATTEND Obstetrics & Gynecology
DX: O62.0 Primary inadequate contractions (principal); Z3A.39 39 weeks gestation of pregnancy
CPT/HCPCS: 59025; 99213

== ENCOUNTER 2021-12-12 05:38 | Inpatient (IN) | payer BC ==
--- NOTE | 2021-12-09 07:29 | P.HPOB ---
History of Present Illness H&P Date: 12/09/21 Chief Complaint: Repeat section. This patient is a pleasant 21-year-old 3 para 2 female estimated date of confinement 12/10/2021 estimated gestational age at the time of delivery 40-2/7 weeks who presents to labor and delivery for requested repeat section. Patient's history is such that she had a primary for double footling breech for her first she requested a repeat second therefore is a repeat this . Patient's due date is December 10 and she specifically requested delivery in December. I did encourage her to do it before her due date however this is the date she has chosen. care has been uncomplicated. She initially wanted a tubal ligation but since this is another girl she has changed her mind and does not want a tubal ligation. Review of Systems Genitourinary: Reports Menstruation: Reports amenorrhea Past Medical History Past Medical History: Asthma Additional Past Medical History / Comment(s): Low transverse section 2 History of Any Multi-Drug Resistant Organisms: None Reported Past Surgical History: Section Past Anesthesia/Blood Transfusion Reactions: No Reported Reaction Additional Past Anesthesia/Blood Transfusion Reaction / Comment(s): no hx of general anesthesia or blood transfusion Past Psychological History: ADD/ADHD, Anxiety Smoking Status: Former smoker Past Alcohol Use History: None Reported Past Drug Use History: None Reported - Past Family History Mother Family Medical History: No Reported History Medications and Allergies Home Medications Medication Instructions Recorded Confirmed Type Pnv No.95/Ferrous Fum/Folic AC 1 tab PO DAILY 11/17/18 12/08/21 History [ Multivitamin Tablet] Allergies Allergy/AdvReac Type Severity Reaction Status Date / Time No Known Allergies Allergy Verified 12/08/21 22:54 Exam - OBG Physical Exam Abdomen: bowel sounds normal, no diffuse tenderness, no bruit present, no guarding noted, no hepatomegaly, no splenomegaly, no mass Vulva: both: normal Uterus: enlarged Results blood work shows she is A positive, rubella immune, RPR nonreactive, hepatitis B negative, HIV is negative, group B strep was negative, Glucola was normal, most recent ultrasound showed normal anatomy and growth. Assessment and Plan Assessment: This is a pleasant 21-year-old 3 para 2 female 40-2/7 weeks gestation at the time of delivery was requested repeat section at this date. Plan is repeat low transverse section. She does understand the surgery and risks and risks of infection, bleeding, possible injury bowel, bladder, vessels, and/or other organs. All the patient's questions were answered and a written consent obtained. (1) 40 weeks gestation of Status: Acute Code(s): Z3A.40 - 40 WEEKS GESTATION OF SNOMED Code(s): 89248399 (2) Previous delivery affecting Status: Acute Code(s): O34.219 - MATERNAL CARE FOR UNSP TYPE SCAR FROM PREVIOUS DEL SNOMED Code(s): 825239554
[2021-12-12] MEDS ORDERED: LACTATED RINGERS 1,000 ML IV ONE (05:49)
[2021-12-12] MEDS ORDERED: CITRIC ACID-SODIUM CITRATE 15 ML CUP PO ONE (05:49)
[2021-12-12 06:35] LABS: HGB 11.3 gm/dL (11.4-16.0); MCH 29.6 pg (25.0-35.0); MCHC 33.2 g/dL (31.0-37.0); MCV 89.1 fL (80.0-100.0); Mean Platelet Volume 8.3; Platelet Count 205 k/uL (150-450); RBC 3.82 m/uL (3.80-5.40); RDW 13.5 % (11.5-15.5); WBC 8.6 k/uL (3.8-10.6)
[2021-12-12 07:00] LABS: Band Neutrophils % 3 %; Eosinophils # (M) 0.17 k/uL (0-0.7); Lymphocytes # (M) 2.92 k/uL (1.0-4.8); Metamyelocytes # (M) 0.09 k/uL (0); Metamyelocytes % 1 %; Monocytes # (M) 0.43 k/uL (0-1.0); Neutrophils % (M) 55 %; Nucleated Red Blood Cells 0 /100 WBC (0-0); Total Cells Counted 200
[2021-12-12] MEDS ORDERED: PHENYLEPHRINE-0.9% NACL SYG 1,000 MCG/10 ML SYRINGE ONE (07:40)
[2021-12-12] MEDS ORDERED: KETOROLAC 15 MG/ML 1 ML VIAL ONE (07:40)
[2021-12-12] MEDS ORDERED: OXYTOCIN 10 UNIT/ML 1 ML VIAL ONE (07:40)
[2021-12-12] MEDS ORDERED: NALBUPHINE 10 MG/ML (1 ML AMP) ONE (07:40)
[2021-12-12] MEDS ORDERED: MORPHINE SULFATE (PF) 0.3 MG/0.3 ML SYR ONE (07:40)
[2021-12-12] MEDS ORDERED: ONDANSETRON 4 MG/2 ML VIAL ONE (07:40)
--- NOTE | 2021-12-12 08:30 | P.OP ---
Date of Procedure: 12/12/21 Preoperative Diagnosis: #1: 40-2/7 week intrauterine . #2: Previous section 2 desires repeat. Postoperative Diagnosis: #1: Same. #2: Thin lower uterine segment Procedure(s) Performed: Repeat low transverse section Anesthesia: spinal Surgeon: Gilmer Galvez Bird Tender #1: Meli Wright Estimated Blood Loss (ml): 600 Pathology: none sent Condition: stable Disposition: floor Indications for Procedure: Please see dictated H&P for intimate details of this patient's admission. Brief summary this is a pleasant 21-year-old 3 para 2 female 40-2/7 weeks gestation who is admitted to labor and delivery for elective repeat section. Patient stands the surgery and risks and risks of infection, bleeding, possible injury bowel, bladder, vessels, and other organs. All the patient's questions are answered and a written consent is obtained. Operative Findings: This is a vigorous viable female infant Apgars 9 and 10 delivery time is 0800 hours. Patient did have a thin lower uterine segment. The uterus, tubes, ovaries otherwise appear normal. Description of Procedure: This patient has a Pierce catheter placed to straight drain. She is subsequently taken to the operating room where after the appropriate timeout spinal anesthetic is administered. With an adequate level of anesthesia she is laid in the supine position. She has an abdominal prep and drape. Scalpels and taken the previous Pfannenstiel incision is excised. Second scalpel is taken down the fascia the fascia scored with a knife. Fascial incision extended bilaterally using the Bar scissors. Fascia is then dissected off the rectus muscles sharply. Rectus muscles are the peritoneum identified and entered sharply. Peritoneal incision extended superior and inferior without difficulty. Bladder blade is then placed.'s note at this time the lower uterine segment is thin. Bladder peritoneum was taken sharply off the lower uterine segment. Scalpels and taken low transverse uterine incision is then made. Using a hemostat I enter the uterine cavity bluntly and there is loss of clear fluid. This incision is extended laterally 's head was guided gently through the incision with fundal pressure. Mouth and nares are bulb suctioned. There is a nuchal cord 1 which is loose. With more fundal pressure we then have deliver the anterior posterior shoulder and rest this infant's body. This is a vigorous viable female Apgars 9 and 10 delivery time was 0800 hours. After delivery of the infant the umbilical cord is doubly clamped and cut. is then handed off to the nurses in attendance. The placenta is then manually extracted intact. Uterus is then externalized and the uterine incision is demarcated with Fam clamps. Uterine incision then closed using 0 Vicryl running locked fashion 2 layers. Again it is noted to be thin but it is hemostatic. Excess fluid is removed from the abdomen and pelvis. The uterus, tubes, ovaries appear normal otherwise. Uterus placed back into the abdomen. Parietal peritoneum was then identified and closed using 0 Vicryl running fashion. Rectus muscles reapproximated in 0 Vicryl interrupted fashion. Fascial incision then closed using 0 PDS. Fascial incision is intact and hemostatic. Subcutaneous tissues and reapproximated with 3-0 Vicryl. Skin is and closed using malcolm. All counts are correct 3. There are no complications. and mother are stable delivery room.
[2021-12-12] MEDS ORDERED: ONDANSETRON 4 MG/2 ML VIAL IVP PRN (08:35)
[2021-12-12] MEDS ORDERED: ZOLPIDEM 5 MG TAB PO PRN (08:35)
[2021-12-12] MEDS ORDERED: METOCLOPRAMIDE 5 MG/ML 2 ML VIAL IVP PRN (08:35)
[2021-12-12] MEDS ORDERED: NALOXONE 0.4 MG/ML 1 ML VIAL IV PRN (08:35)
[2021-12-12] MEDS ORDERED: diphenhydrAMINE 25 MG CAP PO PRN (08:35)
[2021-12-12] MEDS ORDERED: LANOLIN CREAM 5 GM TUBE TOPICAL PRN (08:35)
[2021-12-12] MEDS ORDERED: SIMETHICONE 80 MG CHEWABLE PO PRN (08:35)
[2021-12-12] MEDS ORDERED: OXYTOCIN 30 UNITS/500 ML NS 30 UNIT in SALINE 1 500ML.BAG IV SCH (08:35)
[2021-12-12] MEDS ORDERED: diphenhydrAMINE 50 MG/ML 1 ML VIAL IVP PRN (08:35)
[2021-12-12] MEDS: SENNOSIDES-DOCUSATE SODIUM 1 EACH TAB PO SCH ×2 (14:14→22:01)
[2021-12-12] MEDS: ACETAMINOPHEN TAB 500 MG TAB PO SCH ×3 (14:15→22:00)
[2021-12-12] MEDS: IBUPROFEN 600 MG TAB PO SCH ×2 (14:33→17:31)
[2021-12-12] MEDS: KETOROLAC 15 MG/ML 1 ML VIAL IVP SCH (17:46)
[2021-12-12] MEDS: LACTATED RINGERS 1,000 ML IV SCH ×2 (18:52→21:59)
[2021-12-13] MEDS: IBUPROFEN 600 MG TAB PO SCH ×4 (00:01→19:38)
[2021-12-13] MEDS: KETOROLAC 15 MG/ML 1 ML VIAL IVP SCH ×3 (00:01→19:38)
[2021-12-13] MEDS: ACETAMINOPHEN TAB 500 MG TAB PO SCH ×3 (04:18→12:28)
--- NOTE | 2021-12-13 06:10 | P.PNOBGPC ---
Subjective - Subjective Patient reports: Reports appetite normal, Reports voiding normally, Reports pain well controlled, Reports ambulating normally : doing well Objective - Vital Signs Latest vital signs: Vital Signs Temp Pulse Resp BP Pulse Ox 12/13/21 04:00 97.9 F 63 12 112/72 99 12/13/21 00:00 98 F 76 12 93/57 99 12/12/21 20:00 98.3 F 67 12 94/59 99 12/12/21 16:00 98.4 F 69 16 90/50 12/12/21 12:00 97.8 F 78 16 103/62 12/12/21 10:30 66 16 114/77 100 12/12/21 10:00 84 16 103/61 100 12/12/21 09:30 64 16 96/62 100 12/12/21 09:15 66 16 98/66 100 12/12/21 09:00 74 16 103/69 100 12/12/21 08:45 78 16 102/68 100 12/12/21 08:30 97.4 F L 68 16 102/63 100 Intake and Output 12/12/21 12/12/21 12/13/21 14:59 22:59 06:59 Intake Total 500 Output Total 1100 1150 500 Balance -1100 -650 -500 Intake: IV 500 Output: Urine 600 1150 500 Output, Quantitative 500 Blood Loss Other: # Voids 1 1 - Exam Lungs: bilateral: normal Chest: Normal S1, Normal S2 Extremities: Present: normal Abdomen: Present: normal appearance, soft. Absent: distention, tenderness Incision: Present: normal, dry, intact Uterus: Present: normal, firm - Labs Labs: Abnormal Lab Results - Last 24 Hours (Table) 12/12/21 Range/Units 05:52 Hgb 11.3 L (11.4-16.0) gm/dL Metamyelocytes # (Man) 0.09 H (0) k/uL Assessment and Plan Assessment: Post operative day #1. Patient is resting without new complaints. Vital signs are stable she's afebrile. Uterus is firm nontender and she is normal lochia. CBC is pending. My impression is a normal postoperative course. Plan is to continue routine postoperative care check CBC, encourage ambulation, allow to shower, most likely discharge home tomorrow (1) 40 weeks gestation of Current Visit: No Status: Acute Code(s): Z3A.40 - 40 WEEKS GESTATION OF SNOMED Code(s): 46134482 (2) Previous delivery affecting Current Visit: No Status: Acute Code(s): O34.219 - MATERNAL CARE FOR UNSP TYPE SCAR FROM PREVIOUS DEL SNOMED Code(s): 152150923
[2021-12-13] MEDS: LACTATED RINGERS 1,000 ML IV SCH ×2 (06:32→19:39)
[2021-12-13 06:41] LABS: Basophils % (A) 0 %; Eosinophils # (A) 0.1 k/uL (0-0.7); Eosinophils % (A) 1 %; HCT 33.6 % (34.0-46.0); HGB 11.1 gm/dL (11.4-16.0); Hypochromasia Slight; Lymphocytes # (A) 2.2 k/uL (1.0-4.8); Lymphocytes % (A) 21 %; MCH 30.6 pg (25.0-35.0); MCHC 32.9 g/dL (31.0-37.0); Mean Platelet Volume 8.7; Monocytes # (A) 0.8 k/uL (0-1.0); Monocytes % (A) 8 %; Neutrophils # (A) 6.8 k/uL (1.3-7.7); Neutrophils % (A) 66 %; Platelet Count 171 k/uL (150-450); RBC 3.61 m/uL (3.80-5.40); RDW 13.2 % (11.5-15.5); WBC 10.3 k/uL (3.8-10.6)
--- NOTE | 2021-12-13 06:57 | P.PN ---
Progress Note - Text Progress Note Date: 12/13/21 Postop day 1 from under spinal anesthesia with intrathecal morphine given for postop pain management. Patient is doing well. Pain is well controlled. On visual analog scale 3-4/10 Mild itching present No nausea or vomiting reported. No Headache or weakness and numbness in the legs. No complications from spinal anesthesia.
[2021-12-13] MEDS: SENNOSIDES-DOCUSATE SODIUM 1 EACH TAB PO SCH ×2 (09:57→19:35)
[2021-12-14] MEDS: ACETAMINOPHEN TAB 500 MG TAB PO SCH ×3 (01:21→08:05)
[2021-12-14] MEDS: IBUPROFEN 600 MG TAB PO SCH ×2 (06:09→10:00)
--- NOTE | 2021-12-14 06:40 | P.PNOBGPC ---
Subjective - Subjective Patient reports: Reports appetite normal, Reports voiding normally, Reports pain well controlled, Reports ambulating normally : doing well Objective - Vital Signs Latest vital signs: Vital Signs Temp Pulse Resp BP Pulse Ox 12/14/21 00:00 97.5 F L 75 16 113/72 98 12/13/21 19:40 98.8 F 72 16 105/70 99 12/13/21 15:17 98.9 F 74 18 96/60 12/13/21 08:00 98.4 F 77 15 93/57 98 Intake and Output 12/13/21 12/13/21 12/14/21 14:59 22:59 06:59 Intake Total 240 Balance 240 Intake: Oral 240 - Exam Lungs: bilateral: normal Chest: Normal S1, Normal S2 Extremities: Present: normal Abdomen: Present: normal appearance, soft. Absent: distention, tenderness Incision: Present: normal, dry, intact Uterus: Present: normal, firm - Labs Labs: Abnormal Lab Results - Last 24 Hours (Table) 12/13/21 Range/Units 06:28 RBC 3.61 L (3.80-5.40) m/uL Hgb 11.1 L (11.4-16.0) gm/dL Hct 33.6 L (34.0-46.0) % Assessment and Plan Assessment: Post operative day #2. Patient is resting without complaints and wishes to go home. Vital signs are stable she is afebrile. Uterus is firm nontender her incision is intact and dry. CBC yesterday was normal. I impression this is a normal course. Plan is to continue routine postoperative care and discharge home later today. (1) 40 weeks gestation of Current Visit: No Status: Acute Code(s): Z3A.40 - 40 WEEKS GESTATION OF SNOMED Code(s): 14869665 (2) Previous delivery affecting Current Visit: No Status: Acute Code(s): O34.219 - MATERNAL CARE FOR UNSP TYPE SCAR FROM PREVIOUS DEL SNOMED Code(s): 324919346
--- NOTE | 2021-12-14 06:48 | P.DS ---
Providers Date of admission: 12/12/21 05:38 Expected date of discharge: 12/14/21 Attending physician: Gilmer Galvez Primary care physician: Stated None - Discharge Diagnosis(es) (1) 40 weeks gestation of Current Visit: No Status: Acute (2) Previous delivery affecting Current Visit: No Status: Acute Hospital Course: Please see dictated H&P for intimate details of this patient's admission. Brief summary this is a pleasant 21-year-old 3 para 2 female 40-2/7 weeks mid to labor and delivery for elective repeat section. Patient is admitted she undergoes above-named surgery for viable female infant. Please see dictated operative note. Postoperatively the patient does well postoperative #2 she is ambulating and urinating without difficulty. Patient's felt to be stable for discharge home follow up with me in 1 week. Procedures: Repeat low transverse section Patient Condition at Discharge: Good Plan - Discharge Summary New Discharge Prescriptions: New Ibuprofen [Motrin] 600 mg PO Q6H #30 tab oxyCODONE HCL [OxyIR] 5 mg PO Q4HR PRN #18 tab PRN Reason: Pain Scale 4 - 6 No Action Pnv No.95/Ferrous Fum/Folic AC [ Multivitamin Tablet] 1 tab PO DAILY Discharge Medication List Pnv No.95/Ferrous Fum/Folic AC [ Multivitamin Tablet] 1 tab PO DAILY 11/17/18 [History] Ibuprofen [Motrin] 600 mg PO Q6H #30 tab 12/14/21 [Rx] oxyCODONE HCL [OxyIR] 5 mg PO Q4HR PRN #18 tab 12/14/21 [Rx] Follow up Appointment(s)/Referral(s): Gilmer Galvez MD [STAFF PHYSICIAN] - 12/21/21 1:30 pm (Also please see me on 01/26/22 @8:30 for a appointment.) Patient Instructions/Handouts: (DC) Activity/Diet/Wound Care/Special Instructions: No strenuous activity or heavy lifting for 6 weeks. No intercourse or anything per vagina for 6 weeks. Please call if any fever, chills, excessive vaginal bleeding, and/or abdominal pain. Discharge Disposition: HOME SELF-CARE
[2021-12-14] MEDS: SENNOSIDES-DOCUSATE SODIUM 1 EACH TAB PO SCH (08:05)
[2021-12-14 11:20] VITALS: BP 114/76; PULSE 88; RESP 20; TEMP 98
== END 2021-12-14 10:50 | disposition home or self-care (01) | DRG 788 ==
LOC: 4FBP 05:38
PROVIDERS: ADMIT Obstetrics & Gynecology; ATTEND Obstetrics & Gynecology
PROC: 4A0HXCZ Measurement of Products of Conception, Cardiac Rate, External Approach (ICD-10-PCS; 2021-12-12)
PROC: 10D00Z1 Extraction of Products of Conception, Low, Open Approach (ICD-10-PCS; principal; 2021-12-12 08:00)
DX: O34.211 Maternal care for low transverse scar from previous cesarean delivery (principal); O48.0 Post-term pregnancy; F41.9 Anxiety disorder, unspecified; F90.9 Attention-deficit hyperactivity disorder, unspecified type; O99.73 Diseases of the skin and subcutaneous tissue complicating the puerperium; L29.9 Pruritus, unspecified; J45.909 Unspecified asthma, uncomplicated; O99.344 Other mental disorders complicating childbirth; O99.52 Diseases of the respiratory system complicating childbirth; Z37.0 Single live birth; Z3A.40 40 weeks gestation of pregnancy; Z87.891 Personal history of nicotine dependence
CPT/HCPCS: 85025; 86850; 86900; 86901

== ENCOUNTER → 2024-07-18 | Outpatient (CLI) | payer OTHER ==
[2024-07-18 15:46] LABS: Basophils # (A) 0.08 X 10*3/uL (0.00-0.10); Basophils % (A) 0.9 %; Eosinophils % (A) 4.7 %; HGB 13.5 g/dL (12.0-15.0); Lymphocytes # (A) 1.86 X 10*3/uL (0.90-5.00); Lymphocytes % (A) 21.8 %; MCHC 31.4 g/dL (32.0-37.0); MCV 92.5 FL (80.0-97.0); Mean Platelet Volume 10.6 FL (9.5-12.2); Monocytes # (A) 0.61 X 10*3/uL (0.20-1.00); Monocytes % (A) 7.1 %; NRBC Per 100 WBC 0 X 10*3/uL (0.00-0.01); Neutrophils # (A) 5.57 X 10*3/uL (1.80-7.70); Neutrophils % (A) 65.3 %; Platelet Count 298 X 10*3/uL (140-440); RBC 4.65 X 10*6/uL (4.10-5.20); RDW 12.3 % (11.5-14.5); WBC 8.54 X 10*3/uL (4.50-10.00)
[2024-07-18 16:55] LABS: BUN/Creat Ratio 15.25 Ratio (12.00-20.00); Blood Urea Nitrogen 12.2 mg/dL (9.0-27.0); Carbon Dioxide 22.4 mmol/L (21.6-31.8); Chloride 106 mmol/L (96-109); Glucose 93 mg/dL (70-110); LDL Cholesterol,Calculated 48.3 mg/dL (0.0-131.0); Potassium 4.5 mmol/L (3.5-5.5); Sodium 140 mmol/L (135-145)
[2024-07-18 16:56] LABS: ALT 19 U/L (8-44); AST 18 U/L (13-35); Albumin 4.4 g/dL (3.8-4.9); Albumin/Globulin Ratio 1.57 Ratio (1.60-3.17); Alkaline Phosphatase 80 U/L (41-126); Calcium 9.4 mg/dL (8.7-10.3); Globulin 2.8 g/dL (1.6-3.3); T4, Free (Free Thyroxine) 1.33 ng/dL (0.80-1.80); Total Bilirubin 0.4 mg/dL (0.3-1.2); Total Protein 7.2 g/dL (6.2-8.2)
== END | disposition home or self-care (01) ==
LOC: LABWHC1 10:58
PROVIDERS: ATTEND Student in an Organized Health Care Education/Training Program
DX: Z13.1 Encounter for screening for diabetes mellitus (principal); Z13.6 Encounter for screening for cardiovascular disorders; D72.829 Elevated white blood cell count, unspecified; R73.01 Impaired fasting glucose; R53.82 Chronic fatigue, unspecified; R74.8 Abnormal levels of other serum enzymes
CPT/HCPCS: 36415; 80053; 80061; 83036; 84439; 84443; 85025